=== PATIENT | female | born 1990 | race Caucasian/White ===

== ENCOUNTER 2016-06-23 16:46 | Emergency (ER) | payer MEDICAID ==
[~2016-06-23] VITALS: Ht 154.9 cm; Wt 111.4 kg
[~2016-06-23 16:46] MED LIST: AMOXICILLI125 MG/51 PO; AMOXICILLI400 MG/51 PO; CEPHALEXIN500 M1 PO; COLACE 100100 MG/CAP PO; FLEXERIL10 MG PO; Inhaler; MOTRIN 600600 MG/TAB PO; MOTRIN800 MG PO; NAPROSYN500 MG PO; NAPROXEN500 M1 PO; NO HOME MEDICATIONS; OXY IR5 MG; OXY IR5 MG PO; PERCOCET 325 MG1 TA2 PO; VICODIN 5/5001 UDTAB PO; [UNRECOGNIZED DRUG - OTHER] PO
[2016-06-23 16:51] VITALS: BP 131/86; TEMP 98.8
[2016-06-23] MEDS ORDERED: PROAIR HFA0.09 MG/AC IH (16:56)
[2016-06-23] MEDS ORDERED: PEN-VEE K500 MG PO (17:28)
[2016-06-23] MEDS ORDERED: NORCO 325 MG-51 TAB PO (17:28)
[2016-06-23 17:41] VITALS: PULSE 86
== END 2016-06-23 17:42 | disposition home or self-care (01) ==
LOC: COL.ER 16:46
DX: K04.7 Periapical abscess without sinus (principal); K03.81 Cracked tooth; Z77.22 Contact with and (suspected) exposure to environmental tobacco smoke (acute) (chronic)

== ENCOUNTER 2017-10-17 22:06 | Emergency (ER) | payer MEDICAID ==
[~2017-10-17] VITALS: Ht 157.5 cm; Wt 109.1 kg
[~2017-10-17 22:06] MED LIST changes: +NORCO 325 MG-51 TAB PO; +PEN-VEE K500 MG PO; +PROAIR HFA0.09 MG/AC IH
[2017-10-17 22:11] VITALS: TEMP 99.5
[2017-10-17] MEDS ORDERED: BACTRIM DS 8001 TAB PO (23:14)
[2017-10-17 23:28] VITALS: BP 140/89; PULSE 99
== END 2017-10-17 23:42 | disposition home or self-care (01) ==
LOC: COL.ER 22:06
DX: L98.491 Non-pressure chronic ulcer of skin of other sites limited to breakdown of skin (principal); F17.210 Nicotine dependence, cigarettes, uncomplicated; Z98.890 Other specified postprocedural states

== ENCOUNTER 2018-11-13 21:26 | Inpatient (IN) | payer SELFPAY ==
[~2018-11-13] VITALS: Ht 154.9 cm; Wt 123.8 kg
[~2018-11-13 21:26] MED LIST changes: +BACTRIM DS 8001 TAB PO
[2018-11-13 23:03] LABS: BASO % 0.2 % (0.0-2.0); EOS % 0.3 % (0-4.0); GRAN # 7.2 (1.4-6.5); HEMATOCRIT 42.2 % (37.0-47.0); LYMPH # 1.9 (1.2-3.4); MEAN CELL VOLUME 90 fl (80.0-100.0); MEAN CORPUSCULAR HEMOGLOBIN 30 pg (27.0-31.0); MEAN CORPUSCULAR HGB CONC 33 g/dl (33.0-37.0); MEAN PLATELET VOLUME 10.4 fl (7.4-10.4); MONO # 0.4 (0.1-0.6); MONO % 4.2 % (1.7-9.3); PLATELET COUNT 203 K/mm3 (130-400); RED BLOOD COUNT 4.71 M/mm3 (4.10-5.30); REDCELL DISTRIBUTION WIDTH-CV 12.7 % (11.5-14.5)
[2018-11-13 23:10] LABS: ALBUMIN 4.1 gm/dL (3.5-5.0); BILIRUBIN,TOTAL 0.4 mg/dL (0.0-1.0); C-REACTIVE PROTEIN 2.4 mg/dL (0.0-0.9); CALCIUM 9.3 mg/dL (8.4-10.2); CREATININE, serum 0.89 (0.52-1.25); POTASSIUM 4.1 mmol/L (3.4-5.0); TOTAL PROTEIN 7.6 gm/dL (6.4-8.2)
[2018-11-14 03:22] LABS: GLUCOSE,CSF 57 mg/dL (40-70); TOTAL PROTEIN,CSF 109 mg/dL (15-45)
[2018-11-14 04:03] LABS: COLLECTION METHOD CLEAN CATCH
[2018-11-14 04:41] LABS: MUCOUS Present /lpf; PH 5 (5-8); SQUAMOUS EPITHELIAL 0-2 /hpf; URINE APPEARANCE Clear; URINE BACTERIA None Seen /hpf; URINE BILIRUBIN Negative (NEGATIVE); URINE BLOOD 3+ (NEGATIVE); URINE COLOR Yellow; URINE GLUCOSE Negative (NEGATIVE); URINE KETONE Negative (NEGATIVE); URINE LEUKOCYTE ESTERASE Trace (NEGATIVE); URINE NITRATE Positive (NEGATIVE); URINE PROTEIN(semi-quant) Negative (NEGATIVE); URINE UROBILINOGEN Negative (NEGATIVE)
[2018-11-14 07:31] LABS: CSF APPEARANCE CLEAR; CSF COLOR COLORLESS
[2018-11-14 07:32] LABS: CSF APPEARANCE CLEAR; CSF COLOR COLORLESS; CSF RBC 16 /mm3 (0-0)
[2018-11-14 07:33] LABS: CSF RBC 19 /mm3 (0-0)
[2018-11-14 09:22] LABS: CSF POLYMORPHONUCLEAR 4 % (0-6)
[2018-11-14 09:25] LABS: CSF MONONUCLEAR 96 % (70-100)
[2018-11-14 09:26] LABS: CSF POLYMORPHONUCLEAR 3 % (0-6)
[2018-11-14 09:27] LABS: CSF MONONUCLEAR 97 % (70-100)
[2018-11-14 10:02] VITALS: BP 118/56; PULSE 76; TEMP 98.9
--- NOTE | 2018-11-14 10:35 | NUR ---
SW met with the patient to discuss a discharge plan. The pt lives in [place] with her Rex and their children. The pt does not use DME and reports independence with ADLs. The pt's PCP is Dr. Muñoz and pt receives medications from [facility] in [facility] and reports she may need a medication voucher upon discharge. The pt does not have advanced directives in the EMR and was not interested in obtaining a DPOA-HC form. The pt plans to return home and Rex will provide transportation. SW will continue to follow to assist with any discharge recommendations.
--- NOTE | 2018-11-14 12:06 | NUR ---
Patient is up in recliner, did get up for shower and has been to the restroom a few times. Headache was reported to be a 9/10. Did receive order for one time dose of morphine. Patient is stating that this has helped immensely. She also asks if she is able to eat, order received for general diet. Patient states she is able to order food independently. is at bedside. No other needs identified at this time. Call light and personal items are within reach.
[2018-11-14 13:13] VITALS: BP 110/68; PULSE 90; TEMP 98.3
--- NOTE | 2018-11-14 13:32 | NUR ---
Vancomycin Initial Dosing Pharmacy Note Ordering provider: Elicia Del Angel W., MD Indication/duration: MENINGITIS, EMPIRIC COVERAGE Relevant comorbidities: UTI LABS: SCr 0.89 Loading dose: 2g given in ED 11/14/18 @ 0645 Maintenance dose: 1g Q8H starting 14 hours after loading dose should give a trough of 17. Awaiting lab results and ID consult.
[2018-11-14 16:26] VITALS: BP 123/86; PULSE 85; TEMP 98
--- NOTE | 2018-11-14 19:29 | NUR ---
Patient is sitting up in recliner, is at bedside. Earlier patient had asked when she could go home. Did place call to [facility] and was informed that they were not going to discharge and if she left she would have to leave AMA. Patient was notified and agreed stating she would call PCP and follow up with him in the morning. Stated she did want to eat and receive one more dose of IV medication prior to leaving. Did encourage patient to stay until morning but she stated she had a life outside of the hospital. Did verbalize health risks involved if untreated and she verbalized understanding. She did verbalize that she did not understand if she had a viral infection why she had to stay for antibiotics. She was notified that tests were pending and not resulted yet so she needed to be treated as such. She said that she would be more open to stay if she would have been able to talk to her PCP but was not given the opportunity to do so. Personal items and call light are within reach. Report given to oncoming shift.
[2018-11-14 19:34] VITALS: BP 104/57; PULSE 86; TEMP 97.8
--- NOTE | 2018-11-14 20:54 | NUR ---
Initial shift assessment done- hanging dose of Acyclovir at this time IV- has NS at 125cc/hr, denies pain, denies headache,denies that the light bothers her eyes- in talking with -- pt states is going AMA after this dose of antibiotics- states her mind is made up- states she will see her primay doctor tomorrow and see what he says
--- NOTE | 2018-11-14 21:53 | NUR ---
Pt states going AMA now- IV fluids disconnected- IV site removed from R/AC- paperwork signed for AMA- pt states understanding- Jaki MACHUCA aware
[2018-11-15] MEDS ORDERED: OMNICEF 300MG300 MG PO (08:36)
[2018-11-15] MEDS ORDERED: ZOFRAN ODT8 MG PO (08:38)
[2018-11-15] MEDS ORDERED: NORCO 325 MG-51 TAB PO (08:38)
[2018-11-15] MEDS ORDERED: PHENERGAN 25 TA25 MG PO (08:38)
[2018-11-15] MEDS ORDERED: PHENERGAN25 MG RC (08:38)
[2018-11-15] MEDS ORDERED: ZOVIRAX800 MG PO (08:54)
--- NOTE | 2018-11-15 16:00 | NUR ---
Patient requesting to discharge, wanting to leave AMA. pattern grader supervisor was notified.
--- NOTE | 2018-11-16 10:42 | NUR ---
[employer] gift card found in room by housekeeping 11/15/18, attempted to reach patient on that date. Was able to contact Rex and notified him it was at the medical nurses station. He stated he would stop by to pick card up after work today.
== END 2018-11-14 21:56 | disposition left against medical advice (07) | DRG 98 ==
LOC: COL.ER 21:26 → MEDICAL 11-14 06:10
PROVIDERS: Emergency Medicine; Family Medicine; ADMIT Student in an Organized Health Care Education/Training Program
PROC: 009U3ZX Drainage of Spinal Canal, Percutaneous Approach, Diagnostic (ICD-10-PCS; principal; 2018-11-14)
DX: G03.0 Nonpyogenic meningitis (principal); N39.0 Urinary tract infection, site not specified; R11.2 Nausea with vomiting, unspecified; Z53.21 Procedure and treatment not carried out due to patient leaving prior to being seen by health care provider; F17.210 Nicotine dependence, cigarettes, uncomplicated
CPT/HCPCS: 99222-AI; 99239; J0133; J0696; J0780; J1100; J1200; J1630; J1885; J2270; J2550; J3370; J7030; J7040; J7050

== ENCOUNTER 2018-11-15 07:43 | Emergency (ER) | payer SELFPAY ==
[~2018-11-15] VITALS: Ht 157.5 cm; Wt 123.8 kg
[2018-11-15 07:48] VITALS: TEMP 99.8
[2018-11-15 08:36] LABS: HEMATOCRIT 39.5 % (37.0-47.0); HEMOGLOBIN 13.1 g/dl (12.5-16.0); MEAN CELL VOLUME 90 fl (80.0-100.0); MEAN CORPUSCULAR HEMOGLOBIN 30 pg (27.0-31.0); MEAN CORPUSCULAR HGB CONC 33 g/dl (33.0-37.0); MEAN PLATELET VOLUME 10.3 fl (7.4-10.4); PLATELET COUNT 192 K/mm3 (130-400); REDCELL DISTRIBUTION WIDTH-CV 12.8 % (11.5-14.5)
[2018-11-15] MEDS ORDERED: OMNICEF 300MG300 MG PO (08:36)
[2018-11-15] MEDS ORDERED: NORCO 325 MG-51 TAB PO (08:38)
[2018-11-15] MEDS ORDERED: ZOFRAN ODT8 MG PO (08:38)
[2018-11-15] MEDS ORDERED: PHENERGAN 25 TA25 MG PO (08:38)
[2018-11-15] MEDS ORDERED: PHENERGAN25 MG RC (08:38)
[2018-11-15 08:43] LABS: ALBUMIN 3.6 gm/dL (3.5-5.0); BILIRUBIN,TOTAL 0.3 mg/dL (0.0-1.0); CALCIUM 8.9 mg/dL (8.4-10.2); CREATININE, serum 0.84 (0.52-1.25); POTASSIUM 3.8 mmol/L (3.4-5.0); TOTAL PROTEIN 6.7 gm/dL (6.4-8.2)
[2018-11-15] MEDS ORDERED: ZOVIRAX800 MG PO (08:54)
[2018-11-15 09:15] LABS: BAND 3 % (0-10); LYMPHOCYTE 25 % (20.0-51.0); METAMYELOCYTE 2 % (0-0); NEUTROPHILS 70 % (42.0-75.2)
[2018-11-15 09:16] LABS: PLATELET ESTIMATE NORMAL (NORMAL)
[2018-11-15 09:17] LABS: ANISOCYTOSIS 1+; OVALOCYTES 1+
[2018-11-15 11:11] VITALS: BP 104/63; PULSE 85
== END 2018-11-15 10:59 | disposition home or self-care (01) ==
LOC: COL.ER 07:43
PROVIDERS: Emergency Medicine
DX: B00.3 Herpesviral meningitis (principal); N39.0 Urinary tract infection, site not specified; F17.210 Nicotine dependence, cigarettes, uncomplicated; Z98.890 Other specified postprocedural states
CPT/HCPCS: J0696; J1885; J2270; J2405; J2550; J7030

== ENCOUNTER 2019-10-20 15:26 | Emergency (ER) | payer MEDICAID ==
[~2019-10-20] VITALS: Ht 154.9 cm; Wt 118.2 kg
[~2019-10-20 15:26] MED LIST changes: +OMNICEF 300MG300 MG PO; +PHENERGAN 25 TA25 MG PO; +PHENERGAN25 MG RC; +ZOFRAN ODT8 MG PO; +ZOVIRAX800 MG PO
[2019-10-20 15:33] VITALS: BP 159/84; PULSE 103; TEMP 99.3
[2019-10-20] MEDS ORDERED: PROVENTIL0.09 MG/A1 IH (15:43)
[2019-10-20] MEDS ORDERED: PEN-VEE K500 MG PO (15:45)
[2019-10-20] MEDS ORDERED: NORCO 325 MG-51 TAB PO (15:45)
== END 2019-10-20 15:56 | disposition home or self-care (01) ==
LOC: COL.ER 15:26
DX: K08.89 Other specified disorders of teeth and supporting structures (principal); F17.210 Nicotine dependence, cigarettes, uncomplicated; Z98.51 Tubal ligation status